=== PATIENT | male | born 1995 ===

== ENCOUNTER 2018-12-26 22:17 | Emergency (ER) | payer SELFPAY ==
[~2018-12-26] VITALS: Ht 160 cm; Wt 49.9 kg
--- NOTE | ~2018-12-26 | EKG ---
[place], [place] ELECTROCARDIOGRAM REPORT NAME: ALFREDO OSORIO UNIT #: [id number] ROOM: DOCTOR: EPIPHANY DRAFT REPORT BIRTHDATE: [birth year] [facility] Test Date: 2018-12-26 Test Time: 23:20:44 Pat Name: ALFREDO OSORIO Department: Room: Gender: Continuous Still Operator: SS RESP : 1995 Requested By: SHAHNAZ KAISER Order Number: [id number] Reading MD: Sami Silveira MD Measurements Intervals [place] Rate: 87 P: 25 MO: 128 QRS: 2 QRSD: 84 T: 32 QT: 350 QTc: 421 Interpretive Statements Sinus rhythm Paired ventricular premature complexes ST elev, probable normal early repol pattern Electronically Signed On 01-08-2019 3:33:29 PDT by Sami Silveira MD CM:EKGRPT:ELECTROCARDIOGRAM REPORT [id number] SHAHNAZ KAISER MD EPIPHANY DRAFT REPORT SHAHNAZ KAISER MD
[2018-12-26 23:47] LABS: BASO # 0.1 10*3/uL (0.0-0.1); BASO % 0.3 % (0.0-1.0); EOS # 0.1 10*3/uL (0.0-0.4); EOS % 0.3 % (1.0-4.0); HEMATOCRIT 46.4 % (42.0-52.0); HEMOGLOBIN 16.2 g/dl (14.0-18.0); LYMPH # 1.9 10*3/uL (1.3-4.4); LYMPH % 10.6 % (27.0-41.0); MEAN CELL VOLUME 92.8 fl (80.0-94.0); MEAN CORPUSCULAR HGB 32.4 pg (27.0-31.0); MEAN CORPUSCULAR HGB CONC 34.9 g/dl (33.0-37.0); MEAN PLATELET VOLUME 9.4 fl (9.6-12.3); MONO # 0.8 10*3/uL (0.1-1.0); MONO % 4.8 % (3.0-9.0); NEUT # 14.6 10*3/uL (2.3-7.9); NEUT % 83.7 % (47.0-73.0); PLATELET COUNT AUTOMATED 257 10*3/uL (130-400); RED CELL DISTRI WIDTH 10.9 % (0-14.5); WHITE BLOOD COUNT 17.4 10*3/uL (4.8-10.8)
[2018-12-27 00:07] LABS: BILIRUBIN NEGATIVE (NEGATIVE); BLOOD TRACE-INTACT (NEGATIVE); CLARITY CLEAR (CLEAR); COLOR YELLOW (YELLOW); GLUCOSE NEGATIVE (NEGATIVE); KETONE NEGATIVE (NEGATIVE); LEUKO ESTERASE NEGATIVE (NEGATIVE); NITRITE NEGATIVE (NEGATIVE)
[2018-12-27 00:10] LABS: ALKALINE PHOSPHATASE 94 U/L (45-117); BUN 7 mg/dl (7-24); CHLORIDE 105 mmol/L (98-107); CREATININE 1.02 mg/dL (0.70-1.30); POTASSIUM 3.6 mmol/L (3.5-5.1); SGOT/AST 11 IU/L (3-35); SGPT/ALT 16 U/L (12-78); SODIUM 139 mmol/L (136-145); TOTAL PROTEIN 8.5 gm/dL (6.4-8.2)
[2018-12-27 00:15] LABS: WBC 0-2 wbc/hpf (0-5)
[2018-12-27 00:18] LABS: URINE AMPHETAMINES < 1000 (1000ng/ml); URINE BARBITURATES < 200 (200ng/ml); URINE BENZODIAZEPINES < 200 (200ng/ml); URINE CANNABINOIDS (THC) < 50 (50ng/ml); URINE COCAINE < 300 (300ng/ml); URINE METHADONE < 300 (300ng/ml); URINE OPIATES < 300 (300ng/ml)
[2018-12-27 00:19] LABS: URINE PHENCYCLIDINE < 25 (25ng/ml)
[2018-12-27] MEDS ORDERED: KEPPRA250 MG PO ×2 (16:59)
== END 2018-12-27 17:18 | disposition short-term general hospital (02) ==
LOC: ED 22:17
PROVIDERS: Emergency Medicine Emergency Medical Services
DX: G40.909 Epilepsy, unspecified, not intractable, without status epilepticus (principal)